=== PATIENT | male | born 1980 | race Caucasian/White ===

== ENCOUNTER → 2018-06-30 | Outpatient (CLI) | payer BC | LOC: M OUTALCOH 09:22 | DX: Z03.89 Encounter for observation for other suspected diseases and conditions ruled out (principal) ==

== ENCOUNTER 2018-07-07 12:59 | Outpatient (RCR) | payer BC | END 2018-07-23 | LOC: M OUTALCOH 12:59 | DX: Z03.89 Encounter for observation for other suspected diseases and conditions ruled out (principal) ==